=== PATIENT | female | born 1970 | race Caucasian/White ===

== ENCOUNTER 2021-04-06 05:35 | Inpatient (IN) ==
[2021-03-30 10:55] LABS: Basophils # 0.1 10*3/uL (0.0-0.2); Basophils % 0.7 % (0.0-0.8); Eosinophils # 0.2 10*3/uL (0.0-0.87); Eosinophils % 1.8 % (0.00-10.9); Immature Granulocytes % 0.5 %; Immature Granulocytes Absolute 0.05 #; Lymphocytes # 2.8 10*3/uL (1.4-4.0); Lymphocytes % 26.6 % (21.3-54.2); Mean Corpuscular HGB Conc 31.7 GM/DL (32-36); Mean Corpuscular Volume 97.4 FL (87-102); Mean Platelet Volume 10.2 FL (9.6-12.0); Monocytes % 8.6 % (1.7-12.7); Neutrophils % 61.8 % (38.7-73.9); Platelet Count 310 T/CUMM (130-400); Red Blood Count 4.21 MC/CUMM (3.8-5.5); Red Cell Distribution Width 13.8 % (9.3-17.3); White Blood Count 10.6 T/CUMM (4-12)
[2021-03-30 10:59] LABS: Bilirubin,Urine Negative (Negative); Blood, Urine Small mg/dL (Negative); Glucose,Urine (UA) Negative (Negative); Ketones,Urine 5 mg/dL (Negative); Mucus,Urine Occasional /LPF (Occasional); Nitrite,Urine Negative (Negative); Protein,Urine Negative; RBC,Urine 5 /HPF (0-4); Squamous Epithelial Cell,Urine Occasional /HPF (0-10); Urine Appearance CLEAR (Clear); Urine Color Yellow (Yellow); Urine Specific Gravity 1.024 (1.001-1.035); Urine Urobilinogen < 2.0 EU/DL (0.2-1.0)
[2021-03-30 11:05] LABS: PT Patient Result 11.1 SECS (10.5-12.0); Partial Thromboplastin Time 25.3 SECS (23.8-32.1)
[2021-03-30 11:19] LABS: Albumin 3.3 G/DL (3.4-5.0); Bilirubin,Total 0.6 MG/DL (0.20-1.00); Calcium 8.7 MG/DL (8.5-10.1); Osmolality,Calculated 282.1 MOS/KG (273-304); Total Protein 6.9 G/DL (6.4-8.2)
[2021-03-30 11:49] LABS: HIV Antigen/Antibody Result Nonreactive (Nonreactive)
[2021-04-06] MEDS ORDERED: AMPICILLIN/SULBACTAM 3,000 MG in SODIUM CHLORIDE 0.9% 100 ML IV ONE (06:00)
[2021-04-06] MEDS ORDERED: DIAZEPAM 5 MG TABLET PO ONE (06:19)
[2021-04-06] MEDS ORDERED: SCOPOLAMINE 1.5 MG PATCH TRANSDERM ONE (06:19)
[2021-04-06] MEDS ORDERED: FAMOTIDINE 20 MG TABLET PO ONE (06:19)
[2021-04-06] MEDS ORDERED: LACTATED RINGERS 1,000 ML IV SCH ×2 (06:30→09:30)
[2021-04-06] MEDS ORDERED: fentaNYL 250 MCG/5 ML VIAL ONE (06:43)
[2021-04-06] MEDS ORDERED: MIDAZOLAM 2 MG/2 ML VIAL ONE (06:43)
[2021-04-06] MEDS ORDERED: LIDOCAINE 1%/EPI INJ 20 ML VIAL ONE (06:51)
[2021-04-06] MEDS ORDERED: TISSUE ADHESIVE 1 EACH APPLICATOR TOP ONE (06:51)
[2021-04-06] MEDS ORDERED: BUPIVACAINE MPF 0.25% 30 ML VIAL ONE (06:51)
[2021-04-06] MEDS ORDERED: DEXAMETHASONE 4 MG/1 ML VIAL ONE (08:08)
[2021-04-06] MEDS ORDERED: KETOROLAC 30 MG/1 ML VIAL ONE (08:08)
[2021-04-06] MEDS ORDERED: ROCURONIUM 50 MG/5 ML VIAL IV ONE (08:08)
[2021-04-06] MEDS ORDERED: ACETAMINOPHEN INJ 1,000 MG/100 ML VIAL IV ONE (08:08)
[2021-04-06] MEDS ORDERED: LIDOCAINE 2% 5 ML VIAL ONE (08:08)
[2021-04-06] MEDS ORDERED: ONDANSETRON 4 MG/2 ML VIAL ONE (08:08)
[2021-04-06] MEDS ORDERED: propofoL 200 MG/20 ML VIAL IV ONE (08:08)
[2021-04-06] MEDS ORDERED: SEVOFLURANE 1 UNIT/15 MINUTE INH ONE (08:08)
[2021-04-06] MEDS ORDERED: SUGAMMADEX 200 MG/2 ML VIAL IV ONE (08:52)
[2021-04-06] MEDS ORDERED: BISACODYL 10 MG SUPP RECTAL PRN (09:11)
[2021-04-06] MEDS ORDERED: IBUPROFEN 800 MG TABLET PO PRN (09:11)
[2021-04-06] MEDS ORDERED: ACETAMINOPHEN 325 MG TABLET PO PRN (09:11)
[2021-04-06] MEDS ORDERED: ONDANSETRON 4 MG/2 ML VIAL IV PRN (09:11)
[2021-04-06] MEDS ORDERED: BENZOCAINE/MENTHOL LOZENGE 18/BOX PO PRN (09:11)
[2021-04-06] MEDS ORDERED: HYDROmorphone 2 MG/1 ML VIAL IV PRN (09:13)
[2021-04-06 09:20] LABS: Bilirubin,Urine Negative (Negative); Blood, Urine Negative (Negative); Glucose,Urine (UA) Negative (Negative); Ketones,Urine Negative (Negative); Mucus,Urine Many /LPF (Occasional); Nitrite,Urine Negative (Negative); Protein,Urine Negative; RBC,Urine 4 /HPF (0-4); Squamous Epithelial Cell,Urine Few /HPF (0-10); Urine Appearance Slightly Hazy (Clear); Urine Color Yellow (Yellow); Urine Specific Gravity 1.026 (1.001-1.035); Urine Urobilinogen < 2.0 EU/DL (0.2-1.0)
[2021-04-06] MEDS: LACTATED RINGERS 1,000 ML IV SCH ×2 (10:22→18:37)
[2021-04-06] MEDS: MEPERIDINE 50 MG/1 ML VIAL IV PRN ×3 (10:22→19:35)
[2021-04-06 10:44] LABS: Basophils % 0.3 % (0.0-0.8); Eosinophils # 0.1 10*3/uL (0.0-0.87); Eosinophils % 0.5 % (0.00-10.9); Hematocrit 40.6 VOL% (35.7-47.0); Hemoglobin 12.9 GM/DL (12.0-16.0); Immature Granulocytes % 0.7 %; Immature Granulocytes Absolute 0.08 #; Lymphocytes # 1.8 10*3/uL (1.4-4.0); Lymphocytes % 15.1 % (21.3-54.2); Mean Corpuscular HGB Conc 31.8 GM/DL (32-36); Mean Corpuscular Volume 97.1 FL (87-102); Mean Platelet Volume 10.4 FL (9.6-12.0); Monocytes % 2.2 % (1.7-12.7); Neutrophils % 81.2 % (38.7-73.9); Platelet Count 327 T/CUMM (130-400); Red Blood Count 4.18 MC/CUMM (3.8-5.5); Red Cell Distribution Width 13.4 % (9.3-17.3); White Blood Count 11.8 T/CUMM (4-12)
[2021-04-06] MEDS ORDERED: KETOROLAC 30 MG/1 ML VIAL IV PRN (19:11)
[2021-04-07 06:04] LABS: Basophils % 0.3 % (0.0-0.8); Eosinophils % 0.2 % (0.00-10.9); Hematocrit 37.4 VOL% (35.7-47.0); Hemoglobin 11.7 GM/DL (12.0-16.0); Immature Granulocytes % 0.4 %; Immature Granulocytes Absolute 0.05 #; Lymphocytes # 2.5 10*3/uL (1.4-4.0); Lymphocytes % 20.3 % (21.3-54.2); Mean Corpuscular HGB Conc 31.3 GM/DL (32-36); Mean Corpuscular Volume 98.7 FL (87-102); Mean Platelet Volume 10.5 FL (9.6-12.0); Monocytes % 7.1 % (1.7-12.7); Neutrophils % 71.7 % (38.7-73.9); Platelet Count 300 T/CUMM (130-400); Red Blood Count 3.79 MC/CUMM (3.8-5.5); Red Cell Distribution Width 13.4 % (9.3-17.3); White Blood Count 12.2 T/CUMM (4-12)
[2021-04-07] MEDS: METOCLOPRAMIDE 10 MG TABLET PO SCH ×2 (10:38→21:11)
[2021-04-07] MEDS: MAGNESIUM HYDROXIDE SUSP 30 ML UDCUP PO PRN (21:10)
[2021-04-07] MEDS: guaiFENesin 200 MG/10 ML UDCUP PO PRN (21:11)
[2021-04-07] MEDS: DOCUSATE SODIUM 100 MG CAPSULE PO PRN (21:11)
[2021-04-08] MEDS ORDERED: SIMETHICONE CHEW 80 MG TABLET PO PRN (02:11)
[2021-04-08] MEDS: METOCLOPRAMIDE 10 MG TABLET PO SCH ×2 (06:54→08:43)
[2021-04-08] MEDS: DOCUSATE SODIUM 100 MG CAPSULE PO PRN (08:43)
[2021-04-08] MEDS: MAGNESIUM HYDROXIDE SUSP 30 ML UDCUP PO PRN (08:43)
[2021-04-08] MEDS: guaiFENesin 200 MG/10 ML UDCUP PO PRN (08:47)
[2021-04-08 12:03] VITALS: BP 102/63
== END 2021-04-08 11:51 | disposition home or self-care (01) | DRG 742 ==
LOC: N.OR 05:35 → N.SDSINP 05:40 → N.OB 09:52
PROVIDERS: ADMIT Obstetrics & Gynecology; ATTEND Obstetrics & Gynecology